=== PATIENT | male | born 1960 | race Caucasian/White ===

== ENCOUNTER 2020-03-04 07:14 | Inpatient (IN) | payer BC, MEDICARE ==
[~2020-03-04] VITALS: Ht 175.3 cm; Wt 118.4 kg
[2020-03-04] MEDS ORDERED: LABETALOL 5MG/ML, 20ML IVPush ONE (07:30)
[2020-03-04] MEDS ORDERED: SODIUM CHLORIDE 0.9% 1,000ML IVBOLUS ONE (07:30)
--- NOTE | 2020-03-04 07:36 | NUR ---
BIB BY MOE FOR "NOT ACTING RIGHT/INABILITY TO WALK/SPEAK WELL SINCE 2PM YESTERDAY (03/03)" ARRIVED AT [address] NUNEZ FOUND ONLY MILD DYSARTHRIA FSBS 136 PLACED ON SPEECH LANG PATH/ECG OBTAINED AND BASIC SET OF LABS SENT FOR ANALYSIS TO CT SCAN AT 0730
[2020-03-04 07:48] LABS: BASOPHILS % (AUTO) 0 % (0-1); EOSINOPHILS % (AUTO) 0 % (1-7); LYMPHOCYTES % (AUTO) 9 % (22-44); MEAN CORPUSCULAR HEMOGLOBIN 27.4 pg (27.5-34.5); MEAN CORPUSCULAR HGB CONC 33.6 g/dL (33.2-36.2); MEAN PLATELET VOLUME 7.7 fL (7.4-10.4); MONOCYTES % (AUTO) 6 % (2-9); NEUTROPHILS % (AUTO) 84 % (42-75); PLATELET COUNT 281 x10^3/uL (130-400); RED BLOOD COUNT 5.53 x10^6/uL (4.38-5.82); RED CELL DISTRIBUTION WIDTH 14.1 % (9.4-14.8)
[2020-03-04 07:50] LABS: MD NO
--- NOTE | 2020-03-04 07:55 | NUR ---
HR NOW TO 100 (PROVIDER AWARE-TO NON-ADMIN LABETOLOL) REPEAT ECG OBTAINED PROVIDED WITH WATER-PASSED SWALLOW SCREEN
[2020-03-04 07:58] LABS: INTERNATIONAL NORMALIZED RATIO 1.06 (0.93-1.1); PROTHROMBIN TIME 11.2 Seconds (9.6-11.5)
[2020-03-04 08:00] LABS: ALBUMIN 3.6 g/dL (3.4-5.0); ANION GAP 7 mmol/L (5-15); CALCIUM 9.1 mg/dL (8.5-10.1); CHLORIDE 110 mmol/L (98-107); CREATININE 1.72 mg/dL (0.7-1.3)
[2020-03-04] MEDS: PLEASE ENTER ALLERGIES MC SCH ×2 (08:00→16:00)
[2020-03-04] MEDS ORDERED: OMNIPAQUE 350 MG/ML, 100ML BOTTLE ONE ×2 (08:03→23:50)
[2020-03-04 08:04] LABS: TROPONIN I < 0.015 ng/mL (0.000-0.045)
[2020-03-04] MEDS ORDERED: CEFTRIAXONE PMX 1GM/50ML 50 ML IVPB ONE (08:30)
--- NOTE | 2020-03-04 08:32 | NUR ---
PATIENT ROAD TESTED UP TO BATHROOM FOR UA. UNABLE TO SUPORT WEIGHT. SETTLED ON URINAL. SAMPLE OBTAINED-SENT TO LAB RECHECK ON ROOM AIR POX: 86%. LAB AT BEDSIDE FOR BLOOD CULTURES X2
[2020-03-04] MEDS ORDERED: CEFTRIAXONE PMX 1GM/50ML 50 ML ONE (08:49)
--- NOTE | 2020-03-04 08:51 | NUR ---
abx administered post cultures x2 Er provider to bedside to explain poc-admit
[2020-03-04 09:05] LABS: AMPHETAMINE SCREEN, URINE Negative (Negative); BARBITURATE SCREEN, URINE Negative (Negative); BENZODIAZEPINE SCREEN, URINE Negative (Negative); CANNABINOID SCREEN, URINE Negative (Negative); COCAINE SCREEN, URINE Negative (Negative); METHADONE SCREEN, URINE Negative (Negative); OPIATE SCREEN, URINE Positive (Negative)
--- NOTE | 2020-03-04 09:15 | NUR ---
cody [phone] daughter vanessa [phone] with reassessment no more confused- unable to remember lock code to his phone. Provider made aware Provider also asked about covid test with cxr results and room air sat. Provider responed: we'll get an MRI and I'll talk to the hospitalist about the neccesity of a covid test as it look like just "obar pneumonia."
[2020-03-04] MEDS ORDERED: POTA10TA4 PO (09:30)
[2020-03-04] MEDS ORDERED: HYDR25TA6 PO (09:30)
[2020-03-04] MEDS ORDERED: LOSA50TA14 PO (09:30)
[2020-03-04] MEDS ORDERED: OMEP10CA5 PO (09:30)
--- NOTE | 2020-03-04 11:08 | NUR ---
hospitalist at bedside (Dr. Melendrez) at bedside to admit
--- NOTE | 2020-03-04 11:27 | NUR ---
After nap patient much clearer neurologically. No slurred speech, no confusion walked to restroom without difficulty N/p swab obtained per dr. williamson. Walked to lab for analysis
[2020-03-04] MEDS ORDERED: ENALAPRILAT 1.25 MG/ML, 2ML IV PRN (12:00)
[2020-03-04] MEDS ORDERED: ONDANSETRON 2MG/ML, 2ML IVPush PRN (12:00)
[2020-03-04] MEDS ORDERED: POLYETHYLENE GLYCOL 17 GM PACKET PO PRN (12:00)
[2020-03-04] MEDS: ASPIRIN 81 MG TABLET CHEW PO/NG SCH (12:00)
[2020-03-04] MEDS ORDERED: ASPIRIN 81 MG TABLET CHEW ONE (13:19)
--- NOTE | 2020-03-04 13:20 | NUR ---
ASSUMED CARE FROM TORSTEN CÁRDENAS. PT RESTING IN [facility] AT THIS TIME, MONITORING IN PLACE. PT REPORTS NO NEEDS AT THIS TIME, WILL CONTINUE TO MONITOR.
[2020-03-04] MEDS ORDERED: POTASSIUM CHLORIDE 20 MEQ in SODIUM CHLORIDE 0.9% 250 ML IV ONE (13:31)
[2020-03-04 14:14] VITALS: BP 114/80
[2020-03-04 17:38] LABS: MICROSCOPIC AUTO
[2020-03-04 20:56] VITALS: BP 118/85
[2020-03-04] MEDS ORDERED: SODIUM CHLORIDE 0.9% 1,000 ML IV SCH (21:00)
[2020-03-04] MEDS: ATORVASTATIN 40 MG TABLET PO SCH (21:11)
[2020-03-05] MEDS ORDERED: HEPARIN 5,000 UNITS/ML, 1ML IV ONE (00:30)
[2020-03-05] MEDS ORDERED: HEPARIN 25,000 UNITS/250ML PMX 250 ML IV PRN (00:30)
[2020-03-05] MEDS ORDERED: HEPARIN 5,000 UNITS/ML, 1ML IV PRN (00:30)
[2020-03-05 02:00] VITALS: BP 138/98
[2020-03-05 07:30] LABS: BASOPHILS % (AUTO) 1 % (0-1); EOSINOPHILS % (AUTO) 2 % (1-7); LYMPHOCYTES % (AUTO) 15 % (22-44); MEAN CORPUSCULAR HEMOGLOBIN 26.7 pg (27.5-34.5); MEAN CORPUSCULAR HGB CONC 33.1 g/dL (33.2-36.2); MONOCYTES % (AUTO) 7 % (2-9); NEUTROPHILS % (AUTO) 76 % (42-75); PLATELET COUNT 274 x10^3/uL (130-400); RED BLOOD COUNT 5.03 x10^6/uL (4.38-5.82)
[2020-03-05 07:34] LABS: MD NO
[2020-03-05 07:36] LABS: ALANINE AMINOTRANSFERASE 38 U/L (12-78); ALBUMIN 2.9 g/dL (3.4-5.0); ANION GAP 4 mmol/L (5-15); CALCIUM 8.3 mg/dL (8.5-10.1); CHLORIDE 109 mmol/L (98-107); CHOLESTEROL, TOTAL 127 mg/dL (140-239); CREATININE 1.11 mg/dL (0.7-1.3)
[2020-03-05 07:38] LABS: ALKALINE PHOSPHATASE 90 U/L (45-117); BILIRUBIN,TOTAL 0.7 mg/dL (0.2-1.0); CHOL/HDL RATIO 2.9; HDL CHOL % 35 % (26-37); HDL CHOLESTEROL (DIRECT) 44 mg/dL (40-60); LDL CHOLESTEROL,CALCULATED 60 mg/dL (54-169); LDL/HDL RATIO 1.4 (0.5-3.0); TOTAL PROTEIN 6.3 g/dL (6.4-8.2); TRIGLYCERIDES 113 mg/dL (50-200); VLDL CHOLESTEROL 23 mg/dL (0-25)
[2020-03-05] MEDS ORDERED: ENOXAPARIN 120MG/0.8ML SQ SCH (08:00)
[2020-03-05] MEDS: ASPIRIN 81 MG TABLET CHEW PO/NG SCH (08:48)
[2020-03-05] MEDS: CEFTRIAXONE PMX 1GM/50ML 50 ML IV SCH (08:49)
[2020-03-05 09:27] VITALS: BP 134/98
[2020-03-05] MEDS ORDERED: APIXABAN 5 MG TABLET PO SCH (11:15)
[2020-03-05] MEDS ORDERED: LORazepam 0.5MG TABLET PO ONE (13:00)
[2020-03-05] MEDS ORDERED: Enoxaparin 1 mg/kg protocol SQ SCH (13:00)
[2020-03-05] MEDS ORDERED: POTASSIUM CHLORIDE 20 MEQ TAB.ER.PRT PO ONE (13:00)
[2020-03-05 13:50] VITALS: BP 119/81
[2020-03-05] MEDS ORDERED: ACETAMINOPHEN 325 MG TABLET ONE (22:34)
[2020-03-05] MEDS: ATORVASTATIN 40 MG TABLET PO SCH (22:36)
[2020-03-05] MEDS: APIXABAN 5 MG TABLET PO SCH (22:37)
[2020-03-05] MEDS: ACETAMINOPHEN 650 MG/20.3 ML UDC PO PRN (22:37)
[2020-03-05 23:00] VITALS: BP 126/86
[2020-03-06 01:23] VITALS: BP 132/89
[2020-03-06 05:55] LABS: BASOPHILS % (AUTO) 1 % (0-1); EOSINOPHILS % (AUTO) 4 % (1-7); LYMPHOCYTES % (AUTO) 20 % (22-44); MEAN CORPUSCULAR HEMOGLOBIN 27.5 pg (27.5-34.5); MEAN CORPUSCULAR HGB CONC 33.9 g/dL (33.2-36.2); MEAN PLATELET VOLUME 7.7 fL (7.4-10.4); MONOCYTES % (AUTO) 8 % (2-9); NEUTROPHILS % (AUTO) 67 % (42-75); PLATELET COUNT 251 x10^3/uL (130-400); RED BLOOD COUNT 4.69 x10^6/uL (4.38-5.82)
[2020-03-06 05:56] LABS: MD NO
[2020-03-06 06:00] LABS: ALBUMIN 2.6 g/dL (3.4-5.0); ANION GAP 3 mmol/L (5-15); CALCIUM 8.1 mg/dL (8.5-10.1); CHLORIDE 111 mmol/L (98-107)
[2020-03-06 06:03] LABS: ALANINE AMINOTRANSFERASE 35 U/L (12-78); ALKALINE PHOSPHATASE 83 U/L (45-117); BILIRUBIN,TOTAL 0.7 mg/dL (0.2-1.0); CREATININE 1.08 mg/dL (0.7-1.3); TOTAL PROTEIN 5.9 g/dL (6.4-8.2)
[2020-03-06 06:49] VITALS: BP 122/84
[2020-03-06] MEDS: ACETAMINOPHEN 650 MG/20.3 ML UDC PO PRN ×2 (08:24→13:40)
[2020-03-06] MEDS: APIXABAN 5 MG TABLET PO SCH ×2 (08:24→21:08)
[2020-03-06] MEDS: ASPIRIN 81 MG TABLET CHEW PO/NG SCH (08:24)
[2020-03-06] MEDS: CEFTRIAXONE PMX 1GM/50ML 50 ML IV SCH (08:24)
[2020-03-06 13:17] VITALS: BP 140/97
[2020-03-06] MEDS ORDERED: POTASSIUM CHLORIDE 20 MEQ TAB.ER.PRT PO ONE (20:30)
[2020-03-06 20:33] VITALS: BP 136/93
[2020-03-06] MEDS: ATORVASTATIN 40 MG TABLET PO SCH (21:08)
[2020-03-07 02:44] VITALS: BP 133/94
[2020-03-07] MEDS ORDERED: ACETAMINOPHEN 325 MG TABLET ONE (02:48)
[2020-03-07] MEDS: ACETAMINOPHEN 650 MG/20.3 ML UDC PO PRN (02:51)
[2020-03-07 06:37] LABS: BASOPHILS % (AUTO) 1 % (0-1); EOSINOPHILS % (AUTO) 5 % (1-7); LYMPHOCYTES % (AUTO) 22 % (22-44); MEAN CORPUSCULAR HEMOGLOBIN 27.4 pg (27.5-34.5); MEAN CORPUSCULAR HGB CONC 33.8 g/dL (33.2-36.2); MEAN PLATELET VOLUME 7.9 fL (7.4-10.4); MONOCYTES % (AUTO) 8 % (2-9); NEUTROPHILS % (AUTO) 65 % (42-75); PLATELET COUNT 290 x10^3/uL (130-400); RED BLOOD COUNT 4.78 x10^6/uL (4.38-5.82); RED CELL DISTRIBUTION WIDTH 14.1 % (9.4-14.8)
[2020-03-07 06:43] LABS: CHLORIDE 111 mmol/L (98-107)
[2020-03-07 06:46] LABS: MD NO
[2020-03-07 06:50] LABS: ALANINE AMINOTRANSFERASE 37 U/L (12-78); ALBUMIN 2.8 g/dL (3.4-5.0); ALKALINE PHOSPHATASE 80 U/L (45-117); ANION GAP 3 mmol/L (5-15); BILIRUBIN,TOTAL 0.5 mg/dL (0.2-1.0); CALCIUM 9.1 mg/dL (8.5-10.1); CREATININE 1.16 mg/dL (0.7-1.3); TOTAL PROTEIN 6.4 g/dL (6.4-8.2)
[2020-03-07] MEDS: CEFTRIAXONE PMX 1GM/50ML 50 ML IV SCH (08:03)
[2020-03-07] MEDS: ASPIRIN 81 MG TABLET CHEW PO/NG SCH (08:03)
[2020-03-07] MEDS: APIXABAN 5 MG TABLET PO SCH (08:03)
[2020-03-07 08:10] VITALS: BP 135/94
[2020-03-07] MEDS ORDERED: ACETAMINOPHEN 650 MG/20.3 ML UDC PO PRN (11:00)
[2020-03-07] MEDS ORDERED: APIX5TAB PO ×5 (13:25→15:22)
[2020-03-07] MEDS ORDERED: ATOR40TA78 PO (13:25)
[2020-03-07 14:37] VITALS: BP 130/92
[2020-03-12] MEDS ORDERED: APIXABAN 5 MG TABLET PO SCH (09:00)
== END 2020-03-07 15:50 | disposition home or self-care (01) | DRG 70 ==
LOC: ED 09:39 → EDIP 09:49 → 4EST 14:06 → 5SO 03-05 18:42 → DCLOUNGE 03-07 15:42
PROVIDERS: ADMIT Hospitalist; ATTEND Internal Medicine
DX: G93.41 Metabolic encephalopathy (principal); I26.99 Other pulmonary embolism without acute cor pulmonale; J15.9 Unspecified bacterial pneumonia; J96.01 Acute respiratory failure with hypoxia; G45.9 Transient cerebral ischemic attack, unspecified; G46.2 Posterior cerebral artery syndrome; Z20.828 Contact with and (suspected) exposure to other viral communicable diseases; E66.9 Obesity, unspecified; E87.6 Hypokalemia; G31.84 Mild cognitive impairment of uncertain or unknown etiology; I10 Essential (primary) hypertension; I45.10 Unspecified right bundle-branch block; J32.0 Chronic maxillary sinusitis; N20.0 Calculus of kidney; R00.0 Tachycardia, unspecified; D72.829 Elevated white blood cell count, unspecified; Z68.35 Body mass index [BMI] 35.0-35.9, adult
CPT/HCPCS: 36415; 70450; 70496; 70498; 70544; 71045; 71275; 80048; 80053; 80061; 80307; 80320; 81001; 82040; 83036; 83605; 83735; 84145; 84443; 84484; 85025; 85379; 85520; 85610; 85651; 85730; 86140; 87040; 93005; 93306; 93880; 93970; 96361; 96374; 99285; G0378; J0696; J1644; J3480; Q9967; 92523-GN; G0480; J7030; J7050; U0003